=== PATIENT | male | born 1940 | race Caucasian/White ===

== ENCOUNTER 2016-07-20 09:42 | Outpatient (RCR) ==
[2013-08-18 14:29] VITALS: BMI 24.6
== END 2016-08-18 ==
LOC: PUL.REHAB 09:42
PROVIDERS: ATTEND Internal Medicine
DX: J96.90 Respiratory failure, unspecified, unspecified whether with hypoxia or hypercapnia (principal); R06.02 Shortness of breath; J43.9 Emphysema, unspecified; I50.32 Chronic diastolic (congestive) heart failure; I25.10 Atherosclerotic heart disease of native coronary artery without angina pectoris; Z87.891 Personal history of nicotine dependence; Z95.5 Presence of coronary angioplasty implant and graft

== ENCOUNTER 2016-08-19 07:21 | Outpatient (RCR) ==
[2013-08-18 14:29] VITALS: BMI 24.6
[2016-09-08 12:10] VITALS: BP 120/62
== END 2016-09-15 ==
LOC: PUL.REHAB 07:21
PROVIDERS: ATTEND Internal Medicine
DX: J96.90 Respiratory failure, unspecified, unspecified whether with hypoxia or hypercapnia (principal); J43.9 Emphysema, unspecified; I25.10 Atherosclerotic heart disease of native coronary artery without angina pectoris; I50.32 Chronic diastolic (congestive) heart failure; Z87.891 Personal history of nicotine dependence

== ENCOUNTER 2016-09-12 20:33 | Emergency (ER) ==
[2016-09-12 20:41] VITALS: BP 132/73; TEMP 98.2; BMI 25.4
[2016-09-12] MEDS ORDERED: DUONEB NEB STA (20:45)
[2016-09-12] MEDS ORDERED: SOLU-MEDROL 125 MG IVP STA (20:45)
[2016-09-12] MEDS ORDERED: XOPENEX 1.25 MG NEB STA (20:45)
[2016-09-12 20:59] LABS: BASOPHILS # (AUTO) 0.1 K/uL (0-0.2); BASOPHILS % (AUTO) 0.7 % (0.0-3.0); EOSINOPHILS # (AUTO) 0.2 K/ul (0.0-0.7); EOSINOPHILS % (AUTO) 1.6 % (0.0-7.0); HEMATOCRIT 52.1 % (42.0-52.0); HEMOGLOBIN 17.2 g/dl (14.0-18.0); IMMATURE GRANULOCYTE % (AUTO) 0.9 % (0.0-5.0); LYMPHOCYTES # (AUTO) 2.9 K/uL (0.60-3.4); LYMPHOCYTES % (AUTO) 22.2 (10.0-50.0); MEAN CORPUSCULAR HEMOGLOBIN 29.2 pg (27.0-31.0); MEAN CORPUSCULAR VOLUME 88.5 fl (80.0-94.0); MONOCYTES # (AUTO) 0.9 K/uL (0.4-2.0); MONOCYTES % (AUTO) 7.1 (0-10); NEUTROPHILS # (AUTO) 8.9 K/ul (2.0-6.9); NEUTROPHILS % (AUTO) 67.5; PLATELET COUNT 151 10^3/uL (140-440); RED BLOOD COUNT 5.89 10^6/ul (4.70-6.10); WHITE BLOOD COUNT 13.19 K/ul (4.2-10.2)
[2016-09-12 21:20] LABS: ABG PCO2 27.9 mmHg (35-45); ABG PH 7.434 (7.35-7.45)
[2016-09-12 21:21] LABS: ABG BASE EXCESS -6 (-2.0-2.0); ABG HCO3 18.7 (22.0-26.0); ABG TCO2 19 (22.0-28.0)
[2016-09-12 21:26] LABS: ALBUMIN 3.9 g/dL (3.4-5.0); ALBUMIN/GLOBULIN RATIO 0.98; BILIRUBIN,TOTAL 0.76 mg/dL (0.00-1.20); BUN/CREATININE RATIO 17.77; CALCIUM 9.8 mg/dL (8.2-10.2); CREATININE 1.35 mg/dL (0.60-1.10); TOTAL PROTEIN 7.9 g/dL (5.8-8.1); TROPONIN I 0.251 ng/ml (0.0000-0.4000)
[2016-09-12] MEDS ORDERED: LASIX IVP STA (21:50)
--- NOTE | 2016-09-12 22:25 | ED.PDOC ---
General ED Provider: Dr. DIANE ROB-ER Chief Complaint: Shortness of Air Stated Complaint: im having trouble breathing ..my sat is 60 percent Time Seen by Physician: 20:40 Mode of Arrival: Walk-In Information Source: Patient Exam Limitations: No limitations Primary Care Provider: KELLY FLANAGAN Nursing and Triage Documentation Reviewed and Agree: Yes Respiratory Complaint Exam - Shortness of Air Complaint/Exam Onset/Duration: several hours Symptoms Are: Still present Timing: Constant Initial Severity: Mild Current Severity: Moderate Character: Reports: Dyspnea at rest, Dyspnea on exertion Aggravating: Reports: None Alleviating: Reports: None Associated Signs and Symptoms: Reports: Rapid breathing, Labored breathing. Denies: Cough, Wheezing, Chest pain with cough, Chest pain, Fever, Chills, Diaphoresis, Nasal congestion, Dizziness, Calf pain, Calf swelling, Edema, Decreased intake Related History: Reports: Similar episode History of Healthcare-Acquired Pneumonia: No Pulmonary Embolism Risk Factors: Reports: None Cardiac Risk Factors: Reports: CAD, Elevated lipids, Diabetes, Hypertension, CHF Pseudomonas Risk Factors: Reports: Chronic Lung Disease Tuberculosis Risk Factors: Reports: Chronic Resp. Faliure Home Oxygen Use: Yes Recent Stress Test: No Recent Echo/LV Function: No Stridor Present: No Tracheal Deviation: No Subcutaneous Emphysema: No Accessory Muscle Use: Yes Retractions: Supraclavicular, Intercostal Diminished Breath Sounds: Yes Prolonged Expiratory Phase: No Unable to Speak Full Sentences: Yes Fatigue: No Leg Swelling: No Antonette's Sign Present: No Grunting Respirations: No Kussmaul Respirations: No Differential Diagnoses: CHF, Pulmonary Edema, COPD Exacerbation Quality Indicator For Non-Traumatic Chest Pain/Syncope: EKG Performed Review of Systems - Review Of Systems Constitutional: Reports: No symptoms Eyes: Reports: No symptoms Ears, Nose, Mouth, Throat: Reports: No symptoms Respiratory: Reports: Short of air Cardiac: Reports: No symptoms GI: Reports: No symptoms : Reports: No symptoms Musculoskeletal: Reports: No symptoms Skin: Reports: No symptoms Neurological: Reports: No symptoms Endocrine: Reports: No symptoms Hematologic/Lymphatic: Reports: No symptoms All Other Systems: Reviewed and Negative Past Medical History - Past Medical History Endocrine: Reports: Unknown Cardiovascular: Reports: Unknown Respiratory: Reports: Unknown Hematological: Reports: Unknown Gastrointestinal: Reports: Unknown Genitourinary: Reports: Unknown Neuro/Psych: Reports: Unknown Musculoskeletal: Reports: Unknown Cancer: Reports: Unknown - Surgical History General Surgical History: Reports: Unknown - Family History Family History: Reports: Unknown - Social History Smoking Status: Former smoker Hx Substance Use: No Alcohol Screening: None Lives: With family - Immunizations Tetanus Shot up to Date: Yes Physical Exam - Physical Exam Appearance: Well-appearing Eyes: CULLEN, EOMI, Conjunctiva clear ENT: Ears normal Neck: Supple Respiratory: Airway patent, Breath sounds clear, Breath sounds equal, Respirations nonlabored Cardiovascular: RRR, Pulses normal, No rub, No murmur GI/: Soft, Nontender, No masses, Bowel sounds normal, No Organomegaly Musculoskeletal: Normal strength, ROM intact, No edema, No calf tenderness Skin: Warm Neurological: Sensation intact Psychiatric: Affect appropriate Interpretation - Radiology Interpretation Radiology Interpretation By: ED Physician Radiology Results: Negative Exam Interpreted: CXR - EKG Interpretation Time of EKG #1: 22:26 Rate: Normal Ectopy: None George: NL ST Segment: Normal Physician Notification - Case Discussed Physician Notified: dr flanagan Time of Notification: 22:26 Critical Care Note - Critical Care Note Total Time (mins): 15 Course - Course Hematology/Chemistry: 09/12/16 20:55 09/12/16 20:55 Orders, Labs, Meds: Lab Review 09/12/16 09/12/16 20:44 20:55 WBC 13.19 H RBC 5.89 Hgb 17.2 Hct 52.1 H MCV 88.5 MCH 29.2 MCHC 33.0 RDW Coeff of Annie 17.6 H Plt Count 151 Immature Gran % (Auto) 0.9 Neut % (Auto) 67.5 Lymph % (Auto) 22.2 [place] % (Auto) 7.1 Eos % (Auto) 1.6 Baso % (Auto) 0.7 Immature Gran # (Auto) 0.1 Neut # 8.9 H Lymph # 2.9 [place] # 0.9 Eos # 0.2 Baso # 0.1 D-Dimer 0.44 Puncture Site lb O2 Saturation 86.0 L ABG pH 7.434 ABG pCO2 27.9 L ABG pO2 49.0 L* ABG HCO3 18.7 L ABG Total CO2 19 L ABG Base Excess -6 L Milad Test + O2 Delivery Device Bnc Oxygen Liter Flow 4.00 FiO2 % 36.0 Sodium 143 Potassium 4.0 Chloride 107 Carbon Dioxide 22 L Anion Gap 18.0 BUN 24 H Creatinine 1.35 H Estimated GFR (MDRD) 52.00 BUN/Creatinine Ratio 17.77 Glucose 171 H Calcium 9.8 Total Bilirubin 0.76 AST 16 ALT 28 Alkaline Phosphatase 97 Total Creatine Kinase 77 Troponin I 0.2510 B-Natriuretic Peptide 278 H Total Protein 7.9 Albumin 3.9 Globulin 4.0 Albumin/Globulin Ratio 0.98 Orders Category Date Time Status ABG DRAW REQUEST Stat CARDIO 09/12/16 20:44 Ordered EKG-(ED ONLY) Stat CARDIO 09/12/16 20:44 Ordered NEBULIZER TREATMENT Stat CARDIO 09/12/16 20:45 Ordered ED IV/MEDIPORT/POWERPORT .ONCE EMERGENCY 09/12/16 20:45 Active ABG Stat LAB 09/12/16 20:44 Completed BNP [B-TYPE NATRIURETIC PEPTIDE] Stat LAB 09/12/16 20:55 Completed CBC W/ AUTO DIFF Stat LAB 09/12/16 20:55 Completed COMPREHENSIVE METABOLIC PANEL Stat LAB 09/12/16 20:55 Completed CREATINE KINASE Stat LAB 09/12/16 20:55 Completed D-DIMER Stat LAB 09/12/16 20:55 Completed TROPONIN I Stat LAB 09/12/16 20:55 Completed 0.9 % Sodium Chloride [Saline Flush] MEDS 09/12/16 20:45 Ordered 1 syr IVF PRN PRN Furosemide [Lasix] MEDS 09/12/16 21:50 Discontinued 20 mg IVP ONCE STA Ipratropium/Albuterol Neb [Duoneb] MEDS 09/12/16 20:45 Discontinued 1 vial NEB ONCE STA Levalbuterol HCl [Xopenex 1.25 mg] MEDS 09/12/16 20:45 Discontinued 1 vial NEB ONCE STA Methylprednisolone Sod Succ/Pf [Solu-Medrol 125 mg] MEDS 09/12/16 20:45 Discontinued 125 mg IVP ONCE STA CXR [CHEST, 1V AP ONLY] Stat RADS 09/12/16 20:46 Taken Medications Generic Name Dose Route Start Last Admin Trade Name Freq PRN Reason Stop Dose Admin Sodium Chloride 1 syr 09/12/16 20:45 09/12/16 21:57 Saline Flush IVF 1 syr PRN PRN Administration To flush IV Discontinued Medications Generic Name Dose Route Start Last Admin Trade Name Freq PRN Reason Stop Dose Admin Albuterol/Ipratropium 1 vial 09/12/16 20:45 09/12/16 20:50 Duoneb NEB 09/12/16 20:46 1 vial ONCE STA Administration Furosemide 20 mg 09/12/16 21:50 09/12/16 21:55 Lasix IVP 09/12/16 21:51 20 mg ONCE STA Administration Levalbuterol HCl 1 vial 09/12/16 20:45 09/12/16 21:00 Xopenex 1.25 Mg NEB 09/12/16 20:46 1 vial ONCE STA Administration Methylprednisolone Sodium Succinate 125 mg 09/12/16 20:45 09/12/16 21:32 Solu-Medrol 125 Mg IVP 09/12/16 20:46 125 mg ONCE STA Administration Vital Signs: Temp Pulse Resp BP Pulse Ox 09/12/16 20:35 98.2 F 88 32 H 132/73 76 L Departure - Departure Time of Disposition: 22:26 Disposition: TSF SHORT-TRM HOSP Discharge Problem: Acute respiratory failure Qualifiers: Respiratory failure complication: hypoxia Qualifier Code: (J96.01) Acute respiratory failure with hypoxia Instructions: COPD (Chronic Obstructive Pulmonary Disease) (ED) Condition: Stable Pt referred to PMD for follow-up: Yes Allergies/Adverse Reactions: Allergies zolpidem tartrate [From Ambien] Adverse Reaction (Verified 09/12/16 20:40) Home Medications: Ambulatory Orders Amlodipine Besylate [Norvasc] 2.5 mg PO DAILY 08/18/13 Aspirin [Aspirin EC] 81 mg PO DAILYWM 08/18/13 Esomeprazole Magnesium [Nexium] 40 mg PO DAILY 08/18/13 Insulin Aspart [Novolog Insulin] 15 unit SUBCUT BID 08/18/13 Loratadine [Claritin] 10 mg PO DAILY PRN 08/18/13 Lovastatin [Mevacor] 40 mg PO BEDTIME 08/18/13 Metoprolol Succinate [Toprol Xl] 50 mg PO DAILY 08/18/13 Montelukast Sodium [Singulair] 10 mg PO DAILY 08/18/13 NPH, Human Insulin Isophane [Novolin N Insulin] 35 unit SUBCUT BID 08/18/13 Nitroglycerin [Nitrostat] 0.4 mg SL Q5MIN X 3 DOSES PRN 08/18/13 Ramipril [Altace] 5 mg PO BEDTIME 08/18/13 Budesonide/Formoterol Fumarate [Symbicort 160-4.5 Mcg Inhaler] 1 puff IH BID Clopidogrel Bisulfate [Plavix] 75 mg PO DAILY 10/07/15 Tiotropium [place] [Spiriva] 1 cap IH DAILY 10/07/15 Prednisone 5 mg PO BIDWM 09/12/16 Transfer Form Completed: Yes Disposition Discussed With: Patient, Family
--- NOTE | 2016-09-13 01:32 | DI ---
Exam: Chest one-view History: Dyspnea FINDINGS: Normal cardiomediastinal contours. Normal pulmonary vasculature. No infiltrative opacit ies. The lungs are hyperexpanded. Chronic reticular interstitial coarsening. Atherosclerotic calcif ication of the aorta. No acute chest wall abnormality. Impression: Chronic obstructive pulmonary disease. No acute abnormalities are seen.
== END 2016-09-12 23:20 | disposition short-term general hospital (02) ==
LOC: ED 20:33
DX: J96.01 Acute respiratory failure with hypoxia (principal); I25.10 Atherosclerotic heart disease of native coronary artery without angina pectoris; E78.5 Hyperlipidemia, unspecified; E11.9 Type 2 diabetes mellitus without complications; I10 Essential (primary) hypertension; I50.9 Heart failure, unspecified; Z79.899 Other long term (current) drug therapy
CPT/HCPCS: 36415; 80053; 82550; 82803; 83880; 84484; 85025; 85379; 93005; 93010; 94640; 96374; 96375; 99285

== ENCOUNTER 2016-09-12 23:24 | Outpatient (CLI) ==
[2016-09-12 20:41] VITALS: BMI 25.4
== END 2016-09-12 23:25 ==
LOC: AMBL 23:24
PROVIDERS: ATTEND Family Medicine
DX: J96.90 Respiratory failure, unspecified, unspecified whether with hypoxia or hypercapnia (principal); Z99.81 Dependence on supplemental oxygen

== ENCOUNTER 2016-09-16 09:19 | Outpatient (RCR) ==
[2016-10-13 10:26] VITALS: BP 118/52
== END 2016-10-16 ==
LOC: PUL.REHAB 09:19
PROVIDERS: ATTEND Internal Medicine
DX: J96.90 Respiratory failure, unspecified, unspecified whether with hypoxia or hypercapnia (principal); J43.9 Emphysema, unspecified; I50.32 Chronic diastolic (congestive) heart failure; I25.10 Atherosclerotic heart disease of native coronary artery without angina pectoris; Z95.5 Presence of coronary angioplasty implant and graft; Z87.891 Personal history of nicotine dependence

== ENCOUNTER 2016-10-07 16:14 | Outpatient (CLI) | END 2016-10-07 16:15 | disposition home or self-care (01) | LOC: CAR 16:14 | PROVIDERS: ATTEND Family Medicine | DX: G47.34 Idiopathic sleep related nonobstructive alveolar hypoventilation (principal); J44.9 Chronic obstructive pulmonary disease, unspecified; I50.21 Acute systolic (congestive) heart failure | CPT/HCPCS: 95810 ==

== ENCOUNTER 2016-10-17 07:00 | Outpatient (RCR) ==
[2016-11-05 09:41] VITALS: BP 118/54
== END 2016-11-15 ==
LOC: PUL.REHAB 07:00
PROVIDERS: ATTEND Internal Medicine
DX: J96.90 Respiratory failure, unspecified, unspecified whether with hypoxia or hypercapnia (principal); R06.02 Shortness of breath; J43.9 Emphysema, unspecified; I25.10 Atherosclerotic heart disease of native coronary artery without angina pectoris; I50.32 Chronic diastolic (congestive) heart failure; Z95.5 Presence of coronary angioplasty implant and graft; Z87.891 Personal history of nicotine dependence

== ENCOUNTER 2016-11-16 08:54 | Outpatient (RCR) ==
[2016-12-08 09:52] VITALS: BP 120/54
== END 2016-12-16 ==
LOC: PUL.REHAB 08:54
PROVIDERS: ATTEND Internal Medicine
DX: J96.90 Respiratory failure, unspecified, unspecified whether with hypoxia or hypercapnia (principal); R06.02 Shortness of breath; J43.9 Emphysema, unspecified; I50.32 Chronic diastolic (congestive) heart failure; I25.10 Atherosclerotic heart disease of native coronary artery without angina pectoris; Z95.5 Presence of coronary angioplasty implant and graft; Z87.891 Personal history of nicotine dependence

== ENCOUNTER 2016-12-17 06:40 | Outpatient (RCR) ==
[2017-01-05 09:59] VITALS: BP 112/54
== END 2017-01-15 ==
LOC: PUL.REHAB 06:40
PROVIDERS: ATTEND Internal Medicine
DX: J96.90 Respiratory failure, unspecified, unspecified whether with hypoxia or hypercapnia (principal); R06.02 Shortness of breath; J43.9 Emphysema, unspecified; I50.32 Chronic diastolic (congestive) heart failure; I25.10 Atherosclerotic heart disease of native coronary artery without angina pectoris; Z87.891 Personal history of nicotine dependence; Z95.5 Presence of coronary angioplasty implant and graft

== ENCOUNTER 2017-01-18 07:35 | Outpatient (RCR) ==
[2017-01-30] MEDS ORDERED: DUONEB NEB ONE (23:10)
== END 2017-02-15 ==
LOC: PUL.REHAB 07:35
PROVIDERS: ATTEND Internal Medicine
DX: J96.90 Respiratory failure, unspecified, unspecified whether with hypoxia or hypercapnia (principal); R06.02 Shortness of breath; J43.9 Emphysema, unspecified; I50.32 Chronic diastolic (congestive) heart failure; I25.10 Atherosclerotic heart disease of native coronary artery without angina pectoris; Z87.891 Personal history of nicotine dependence

== ENCOUNTER 2017-01-30 22:53 | Emergency (ER) | payer OTHER ==
[2017-01-30 22:53] VITALS: BMI 25.4
[2017-01-30 23:03] VITALS: TEMP 97.2
--- NOTE | 2017-01-30 23:09 | ED.PDOC ---
General ED Provider: Dr. IAN CALDERON Chief Complaint: Shortness of Air Stated Complaint: Been short of breath for couple days, it got worse today evening, EMT was called, they 2 treatment enroute, still in SOB, v mask. Time Seen by Physician: 23:07 Mode of Arrival: Ambulance Information Source: Patient Primary Care Provider: KELLY FLANAGAN Nursing and Triage Documentation Reviewed and Agree: Yes Respiratory Complaint Exam - Shortness of Air Complaint/Exam Symptoms Are: Still present Timing: Constant Initial Severity: Severe Current Severity: Severe Character: Reports: Dyspnea at rest, Dyspnea on exertion Aggravating: Reports: Movement, Smoke exposure Alleviating: Reports: None Associated Signs and Symptoms: Reports: Cough, Wheezing. Denies: Chest pain with cough, Chest pain, Fever, Chills, Diaphoresis, Nasal congestion, Dizziness , Calf pain, Calf swelling, Edema, Rapid breathing, Labored breathing, Decreased intake Related History: Reports: Similar episode History of Healthcare-Acquired Pneumonia: No Pulmonary Embolism Risk Factors: Reports: None Cardiac Risk Factors: Reports: Hypertension Pseudomonas Risk Factors: Reports: None Tuberculosis Risk Factors: Reports: None Home Oxygen Use: Yes Recent Stress Test: No Recent Echo/LV Function: No Respiratory Distress: Moderate Stridor Present: No Tracheal Deviation: No Subcutaneous Emphysema: No Accessory Muscle Use: Yes Retractions: Nasal Flaring Diminished Breath Sounds: Yes Prolonged Expiratory Phase: Yes Unable to Speak Full Sentences: Yes Fatigue: No Antonette's Sign Present: No Grunting Respirations: No Kussmaul Respirations: No Differential Diagnoses: CHF, COPD Exacerbation, Pneumonia Review of Systems - Review Of Systems Constitutional: Reports: Malaise, Weakness Eyes: Reports: No symptoms Ears, Nose, Mouth, Throat: Reports: No symptoms Respiratory: Reports: Cough, Orthopnea, Short of air Cardiac: Reports: No symptoms GI: Reports: No symptoms : Reports: No symptoms Musculoskeletal: Reports: No symptoms Skin: Reports: No symptoms Neurological: Reports: No symptoms Endocrine: Reports: No symptoms Hematologic/Lymphatic: Reports: No symptoms All Other Systems: Reviewed and Negative Past Medical History - Past Medical History Endocrine: Reports: Unknown Cardiovascular: Reports: Unknown Respiratory: Reports: Unknown Hematological: Reports: Unknown Gastrointestinal: Reports: Unknown Genitourinary: Reports: Unknown Neuro/Psych: Reports: Unknown Musculoskeletal: Reports: Unknown Cancer: Reports: Unknown - Surgical History General Surgical History: Reports: Unknown - Family History Family History: Reports: Unknown - Social History Smoking Status: Former smoker Hx Substance Use: No Alcohol Screening: None - Immunizations Tetanus Shot up to Date: (UNKNOWN) Physical Exam - Physical Exam Appearance: Ill-appearing Eyes: Conjunctiva clear ENT: Ears normal, Nose normal, Oropharynx normal Respiratory: Breath sounds diminished, Crackles Cardiovascular: Tachycardia GI/: Soft, Nontender, No masses, Bowel sounds normal, No Organomegaly Musculoskeletal: Normal strength, ROM intact, No edema, No calf tenderness Skin: Warm, Dry, Normal color Neurological: Sensation intact, Motor intact, Reflexes intact, Cranial nerves intact, Alert, Oriented Psychiatric: Affect appropriate, Mood appropriate Interpretation - Radiology Interpretation Radiology Interpretation By: Radiologist Radiology Results: Negative Exam Interpreted: CT Scan Physician Notification - Case Discussed Time of Notification: 00:38 (Dr flanagan ) Critical Care Note - Critical Care Note Total Time (mins): 0 Course - Course Hematology/Chemistry: 01/30/17 23:15 01/30/17 23:15 Orders, Labs, Meds: Lab Review 01/30/17 01/30/17 01/30/17 22:58 23:15 23:20 WBC 15.33 H RBC 5.33 Hgb 16.0 Hct 48.0 MCV 90.1 MCH 30.0 MCHC 33.3 RDW Coeff of Annie 16.0 H Plt Count 185 Immature Gran % (Auto) 1.2 Neut % (Auto) 79.0 Lymph % (Auto) 12.1 [place] % (Auto) 6.3 Eos % (Auto) 0.6 Baso % (Auto) 0.8 Immature Gran # (Auto) 0.2 Neut # 12.1 H Lymph # 1.9 [place] # 1.0 Eos # 0.1 Baso # 0.1 D-Dimer (Manual) 498.12 Puncture Site Lb O2 Saturation 69.0 L ABG pH 7.419 ABG pCO2 24.9 L ABG pO2 34.0 L* ABG HCO3 16.1 L ABG Total CO2 17 L ABG Base Excess -8 L Milad Test + O2 Delivery Device Mask Oxygen Liter Flow 10.00 FiO2 % 60.0 Sodium 139 Potassium 4.4 Chloride 105 Carbon Dioxide 19 L Anion Gap 19.4 BUN 34 H Creatinine 1.45 H Estimated GFR (MDRD) 47.00 BUN/Creatinine Ratio 23.44 Glucose 160 H Lactic Acid 27.4 H Calcium 9.4 Total Bilirubin 0.92 AST 21 ALT 35 Alkaline Phosphatase 90 Total Creatine Kinase 68 Troponin I 0.0590 B-Natriuretic Peptide 341 H Total Protein 8.2 H Albumin 3.9 Globulin 4.3 Albumin/Globulin Ratio 0.91 Procalcitonin < 0.05 Orders Category Date Time Status ABG DRAW REQUEST Stat CARDIO 01/30/17 22:58 Ordered ABG DRAW REQUEST Stat CARDIO 01/31/17 00:35 Ordered EKG-(ED ONLY) Stat CARDIO 01/30/17 22:58 Ordered NEBULIZER TREATMENT Stat CARDIO 01/30/17 23:40 Ordered ED IV/MEDIPORT/POWERPORT .ONCE EMERGENCY 01/30/17 22:58 Active ABG Stat LAB 01/30/17 22:58 Completed ABG Stat LAB 01/31/17 00:35 Ordered B-TYPE NATRIURETIC PEPTIDE Stat LAB 01/30/17 23:20 Completed CBC W/ AUTO DIFF Stat LAB 01/30/17 23:15 Completed COMPREHENSIVE METABOLIC PANEL Stat LAB 01/30/17 23:15 Completed CREATINE KINASE Stat LAB 01/30/17 23:15 Completed D-DIMER Stat LAB 01/30/17 23:20 Completed LACTIC ACID Stat LAB 01/30/17 23:15 Completed PROCALCITONIN Stat LAB 01/30/17 23:15 Completed TROPONIN I Stat LAB 01/30/17 23:15 Completed 0.9 % Sodium Chloride [Saline Flush] MEDS 01/30/17 22:58 Ordered 1 syr IVF PRN PRN Ipratropium/Albuterol Neb [Duoneb] MEDS 01/30/17 23:40 Discontinued 1 vial NEB ONCE STA CT CHEST W/O CONTRAST Stat RADS 01/30/17 22:58 Completed Medications Generic Name Dose Route Start Last Admin Trade Name Freq PRN Reason Stop Dose Admin Sodium Chloride 1 syr 01/30/17 22:58 Saline Flush IVF PRN PRN To flush IV Discontinued Medications Generic Name Dose Route Start Last Admin Trade Name Freq PRN Reason Stop Dose Admin Albuterol/Ipratropium 1 vial 01/30/17 23:40 01/30/17 23:29 Duoneb NEB 01/30/17 23:41 1 vial ONCE STA Administration Vital Signs: Temp Pulse Resp BP Pulse Ox 01/30/17 23:57 99 H 18 111/73 94 L 01/30/17 22:54 97.2 F L 100 H 36 H 145/93 H 69 L Departure - Departure Time of Disposition: 00:37 Disposition: TSF SHORT-TRM HOSP Discharge Problem: COPD exacerbation Instructions: COPD (Chronic Obstructive Pulmonary Disease) (ED) Condition: Stable Pt referred to PMD for follow-up: No Allergies/Adverse Reactions: Allergies zolpidem tartrate [From Ambien] Adverse Reaction (Verified 09/12/16 20:40) Home Medications: Ambulatory Orders Esomeprazole Magnesium [Nexium] 40 mg PO DAILY 08/18/13 Insulin Aspart [Novolog Insulin] 15 unit SUBCUT BID 08/18/13 Lovastatin [Mevacor] 40 mg PO BEDTIME 08/18/13 Metoprolol Succinate [Toprol Xl] 50 mg PO DAILY 08/18/13 Montelukast Sodium [Singulair] 10 mg PO DAILY 08/18/13 NPH, Human Insulin Isophane [Novolin N Insulin] 35 unit SUBCUT BID 08/18/13 Nitroglycerin [Nitrostat] 0.4 mg SL Q5MIN X 3 DOSES PRN 08/18/13 Ramipril [Altace] 5 mg PO BID 08/18/13 Clopidogrel Bisulfate [Plavix] 75 mg PO DAILY 10/07/15 Prednisone 10 mg PO BIDWM 09/12/16 Albuterol Sulfate [Ventolin Hfa] 2 puff IH Q6HR PRN 01/30/17 Fluticasone/Vilanterol [Breo Ellipta Inhaler] 1 each IH DAILY 01/30/17 Furosemide 20 mg PO DAILY 01/30/17 Umeclidinium [place] [Incruse Ellipta] 62.5 mcg IH DAILY 01/30/17 Transfer Form Completed: Yes Disposition Discussed With: Patient, Family
[2017-01-30 23:21] LABS: BASOPHILS # (AUTO) 0.1 K/uL (0-0.2); BASOPHILS % (AUTO) 0.8 % (0.0-3.0); EOSINOPHILS # (AUTO) 0.1 K/ul (0.0-0.7); EOSINOPHILS % (AUTO) 0.6 % (0.0-7.0); IMMATURE GRANULOCYTE % (AUTO) 1.2 % (0.0-5.0); LYMPHOCYTES # (AUTO) 1.9 K/uL (0.60-3.4); LYMPHOCYTES % (AUTO) 12.1 (10.0-50.0); MEAN CORPUSCULAR HGB CONC 33.3 (31.8-35.4); MEAN CORPUSCULAR VOLUME 90.1 fl (80.0-94.0); MONOCYTES % (AUTO) 6.3 (0-10); NEUTROPHILS # (AUTO) 12.1 K/ul (2.0-6.9); PLATELET COUNT 185 10^3/uL (140-440); RED BLOOD COUNT 5.33 10^6/ul (4.70-6.10); WHITE BLOOD COUNT 15.33 K/ul (4.2-10.2)
[2017-01-30 23:35] LABS: ABG PCO2 24.9 mmHg (35-45); ABG PH 7.419 (7.35-7.45)
[2017-01-30 23:36] LABS: ABG BASE EXCESS -8 (-2.0-2.0); ABG HCO3 16.1 (22.0-26.0); ABG TCO2 17 (22.0-28.0)
[2017-01-30] MEDS ORDERED: DUONEB NEB STA (23:40)
--- NOTE | 2017-01-30 23:45 | CT ---
EXAM: CT chest without intravenous contrast 01/30/2017. Sagittal and coronal reformatted images ob tained HISTORY: Shortness of breath COMPARISON: 09/12/2016 FINDINGS: The heart size appears within normal limits. There is no pericardial effusion. Atherosclerotic vascular disease. Coronary artery calcifications. Severe emphysema. Chronic scarring and fibrosis. There is no pulmonary consolidation, effusion or pneumothorax. Posterior fusion of the lower thoracic and lumbar spine. No acute osseous or hardware abnormality. IMPRESSION: 1. Severe emphysema. 2. Atherosclerotic vascular disease. Coronary artery calcifications.
[2017-01-30 23:46] LABS: ALBUMIN 3.9 g/dL (3.4-5.0); ALBUMIN/GLOBULIN RATIO 0.91; ANION GAP 19.4; BILIRUBIN,TOTAL 0.92 mg/dL (0.00-1.20); BUN/CREATININE RATIO 23.44; CALCIUM 9.4 mg/dL (8.2-10.2); CREATININE 1.45 mg/dL (0.60-1.10); POTASSIUM 4.4 mmol/L (3.5-5.1); TOTAL PROTEIN 8.2 g/dL (5.8-8.1); TROPONIN I 0.059 ng/ml (0.0000-0.4000)
[2017-01-30 23:58] VITALS: BP 111/73
[2017-01-31 01:30] LABS: ABG PCO2 27.7 mmHg (35-45); ABG PH 7.403 (7.35-7.45)
[2017-01-31 01:31] LABS: ABG BASE EXCESS -7 (-2.0-2.0); ABG HCO3 17.3 (22.0-26.0)
[2017-01-31 01:32] LABS: ABG TCO2 18 (22.0-28.0)
== END 2017-01-31 01:43 | disposition short-term general hospital (02) ==
LOC: ED 22:53
DX: J44.1 Chronic obstructive pulmonary disease with (acute) exacerbation (principal); R06.02 Shortness of breath; I10 Essential (primary) hypertension; Z77.22 Contact with and (suspected) exposure to environmental tobacco smoke (acute) (chronic); Z79.899 Other long term (current) drug therapy
CPT/HCPCS: 36415; 80053; 82550; 82803; 83605; 83880; 84145; 84484; 85025; 85379; 93005; 93010; 94640; 99285

== ENCOUNTER 2017-01-31 01:48 | Outpatient (CLI) ==
[2017-01-30 22:53] VITALS: BMI 25.4
== END 2017-01-31 01:49 | disposition home or self-care (01) ==
LOC: AMBL 01:48
PROVIDERS: ATTEND Emergency Medicine
DX: J44.1 Chronic obstructive pulmonary disease with (acute) exacerbation (principal)

== ENCOUNTER 2017-02-16 06:44 | Outpatient (RCR) ==
[2017-01-30 23:03] VITALS: BMI 25.4
== END 2017-03-18 ==
LOC: PUL.REHAB 06:44
PROVIDERS: ATTEND Internal Medicine
DX: J96.90 Respiratory failure, unspecified, unspecified whether with hypoxia or hypercapnia (principal); J43.9 Emphysema, unspecified; I50.9 Heart failure, unspecified; I25.10 Atherosclerotic heart disease of native coronary artery without angina pectoris; Z87.891 Personal history of nicotine dependence

== ENCOUNTER 2017-03-19 08:29 | Outpatient (RCR) ==
[2017-01-30 23:03] VITALS: BMI 25.4
== END 2017-03-19 13:40 | disposition home or self-care (01) ==
LOC: PUL.REHAB 08:29
PROVIDERS: ATTEND Internal Medicine
DX: J96.90 Respiratory failure, unspecified, unspecified whether with hypoxia or hypercapnia (principal); R06.02 Shortness of breath; J43.9 Emphysema, unspecified; I50.32 Chronic diastolic (congestive) heart failure; Z87.891 Personal history of nicotine dependence